=== PATIENT | male | born 1965 | race Caucasian/White ===

== ENCOUNTER 2022-07-15 16:07 | Emergency (ER) | payer MEDICAID ==
[~2022-07-15] VITALS: Ht 160 cm; Wt 77.6 kg
--- NOTE | 2022-07-15 16:10 | NUR ---
Pt brought by self , A&Ox4, pt presents to ER with redness, pain on L eye after pig fluid splashed on eye, pt denies blurred vision, skin pink and warm, cap refill <3, VSS, will cont to monitor.
[2022-07-15 16:24] VITALS: BP_SYST 136
--- NOTE | 2022-07-15 16:45 | NUR ---
Dr Olivo evaluating patient at bedside
[2022-07-15] MEDS ORDERED: BACI15OI13 TP (16:53)
[2022-07-15 18:44] VITALS: BP_SYST 136
--- NOTE | 2022-07-15 18:44 | NUR ---
Patient given written and verbal discharge instructions and verbalizes understanding. ER DR MASSIEL VALENZUELA MD discussed with patient the results and treatment provided. Patient in stable condition. ID arm band removed. Rx of BACITRACIN ZINC given. Patient educated on pain management and to follow up with PMD. Pain Scale 0/10. Opportunity for questions provided and answered. Medication side effect fact sheet provided.
== END 2022-07-15 18:44 | disposition home or self-care (01) ==
LOC: SED 16:07
DX: L23.5 Allergic contact dermatitis due to other chemical products (principal); H57.12 Ocular pain, left eye; Z79.899 Other long term (current) drug therapy
CPT/HCPCS: 99282